=== PATIENT | male | born 1985 | race Caucasian/White ===

== ENCOUNTER 2022-10-16 18:25 | Emergency (ER) | payer OTHER, SELFPAY ==
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
[2022-10-16 18:27] VITALS: BP 140/102; PULSE 95; RESP 12; TEMP 36.6; O2SAT 95
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
[2022-10-16 20:21] VITALS: BP 123/95; PULSE 96; RESP 15; TEMP 36.4; O2SAT 100
== END 2022-10-16 20:30 | disposition home or self-care (01) ==
PROVIDERS: Emergency Provider Family Medicine
DX: S13.4XXA Sprain of ligaments of cervical spine, initial encounter (principal); S09.90XA Unspecified injury of head, initial encounter; V89.2XXA Person injured in unspecified motor-vehicle accident, traffic, initial encounter
CPT/HCPCS: 70450; 72125; 99284; L0140